=== PATIENT | female | born 1950 | race American Indian/Alaskan Native ===

== ENCOUNTER 2018-04-01 22:12 | Emergency (ER) | payer MEDICARE, BC ==
[2018-04-01 22:13] VITALS: BMI 34.2
[2018-04-01 22:42] VITALS: O2SAT 99
[2018-04-01] MEDS ORDERED: Albuterol-Ipratrop 3 mg / 0.5 (3 ml) UD IH STA (22:57)
--- NOTE | 2018-04-01 22:59 | ED PDOC ---
Arrival/HPI - General Chief Complaint: Cough, Cold, Congestion Time Seen by Provider: 04/01/18 22:48 Historian: Patient - History of Present Illness Narrative History of Present Illness (Text): 04/01/18 22:55 Ayesha Sultana is a 67 year old female, whose past medical history includes hypertension and hypothyrodism, who presents for productive cough for the past few days. Patient reports associate chills and body aches. Patient denies any shortness of breath, chest pain, fever, recent travel, or any other complaints. Patient notes her grandson was sick with similar symptoms. Past Medical History - Provider Review Nursing Documentation Reviewed: Yes - Infectious Disease Hx of Infectious Diseases: None - Cardiac Hx Hypertension: Yes Hx Pacemaker: No - Neurological Hx Paralysis: No - Endocrine/Metabolic Hx Hypothyroidism: Yes - Hematological/Oncological Hx Blood Transfusions: No Hx Blood Transfusion Reaction: No - Musculoskeletal/Rheumatological Hx Musculoskeletal Disorders: Yes - Genitourinary/Gynecological Other/Comment: Bladder issues - Psychiatric Hx Emotional Abuse: No Hx Physical Abuse: No Hx Substance Use: No - Surgical History Hx Hysterectomy: Yes Hx Mastectomy: Yes Hx Orthopedic Surgery: Yes (left knee sx x3) - Anesthesia Hx Anesthesia Reactions: Yes (nausea and vomiting) Hx Malignant Hyperthermia: No - Suicidal Assessment Feels Threatened In Home Enviroment: No Family/Social History - Physician Review Nursing Documentation Reviewed: Yes Family/Social History: Unknown Family HX Smoking Status: Never Smoked Hx Alcohol Use: Yes (SOCIALLY/ON OCCASION) Frequency of alcohol use: Socially Hx Substance Use: No Allergies/Home Meds Allergies/Adverse Reactions: Allergies Penicillins Allergy (Intermediate, Verified 04/01/18 22:39) RASH Sulfa (Sulfonamide Antibiotics) Allergy (Intermediate, Verified 04/01/18 22:39) ITCHING Home Medications: Home Meds Medication Instructions Recorded Confirmed Atorvastatin Calcium [Lipitor] 10 mg PO DAILY 02/26/12 04/01/18 Levothyroxine [Synthroid] 125 mcg PO QAM 02/26/12 04/01/18 Tolterodine [Detrol LA] 4 mg PO DAILY 03/16/16 04/01/18 amLODIPine [Norvasc] 10 mg PO QAM 03/16/16 04/01/18 Review of Systems - Physician Review All systems were reviewed & negative as marked: Yes - Review of Systems Constitutional: Other (+chills, +body aches). absent: Fevers Respiratory: Cough, Sputum. absent: SOB Cardiovascular: absent: Chest Pain Physical Exam Vital Signs Temp Pulse Resp BP Pulse Ox 04/01/18 22:34 99.3 F 90 20 164/111 H 99 Temperature: Afebrile Blood Pressure: Hypertensive Pulse: Regular Respiratory Rate: Normal Appearance: Positive for: Well-Appearing, Non-Toxic, Comfortable Pain Distress: None Mental Status: Positive for: Alert and Oriented X 3 - Systems Exam Head: Present: Atraumatic, Normocephalic Pupils: Present: PERRL Extroacular Muscles: Present: EOMI Conjunctiva: Present: Normal Mouth: Present: Moist Mucous Membranes Neck: Present: Normal Range of Motion Respiratory/Chest: Present: Wheezes (Very faint expiratory wheeze), Decreased Breath Sounds (Decreased breath sound bilaterally). No: Respiratory Distress, Accessory Muscle Use Cardiovascular: Present: Regular Rate and Rhythm, Normal S1, S2. No: Murmurs Abdomen: No: Tenderness, Distention, Peritoneal Signs Back: Present: Normal Inspection Upper Extremity: Present: Normal Inspection. No: Cyanosis, Edema Lower Extremity: Present: Normal Inspection. No: Edema Neurological: Present: GCS=15, CN II-XII Intact, Speech Normal Skin: Present: Warm, Dry, Normal Color. No: Rashes Psychiatric: Present: Alert, Oriented x 3, Normal Insight, Normal Concentration Medical Decision Making ED Course and Treatment: 04/01/18 22:55 Impression: 67 year old female complaining of productive cough, chills, and body aches. Plan: -- Chest X-ray -- Duoneb -- Reassess and disposition Progress Notes: CXR : NAD, (+) surgical clips noted to the R upper chest, as read by PA XR results d/w the patient. On further questioning, the patient states that she had R breast reconstruction surgery in the past. On reevaluation, patient reports improvement of symptoms, denies any SOB or CP. On exam, patient remains awake alert and oriented 3 in no acute distress. Neck is supple, lungs are clear to auscultation, cardiac regular rate and rhythm, repeat neuro exam shows no focal findings. VS P 80 BP 144/73. Advised to follow up with primary care physician in 1-2 days without fail. Advised to take medication as prescribed. Return to the emergency room at any time for any new or worsening symptoms. Patient states she fully agrees with and understands discharge instructions. States that she agrees with the plan and disposition. Verbalized and repeated discharge instructions and plan. I have given the patient opportunity to ask any additional questions. - RAD Interpretation Radiology Orders: 04/01/18 22:57 CHEST TWO VIEWS (PA/LAT) [RAD] Stat - Medication Orders Current Medication Orders: Albuterol/Ipratropium (Duoneb 3 Mg/0.5 Mg (3 Ml) Ud) 3 ml IH STAT STA Stop: 04/01/18 22:58 - PA / TABLET COATER / Resident Statement MD/DO has reviewed & agrees with the documentation as recorded. - Scribe Statement The provider has reviewed the documentation as recorded by the Scribe Karla Diaz Provider Scribe Attestation: All medical record entries made by the Scribe were at my direction and personally dictated by me. I have reviewed the chart and agree that the record accurately reflects my personal performance of the history, physical exam, medical decision making, and the department course for this patient. I have also personally directed, reviewed, and agree with the discharge instructions and disposition. Disposition/Present on Arrival - Present on Arrival Any Indicators Present on Arrival: No History of DVT/PE: No History of Uncontrolled Diabetes: No Urinary Catheter: No History of Decub. Ulcer: No History Surgical Site Infection Following: None - Disposition Have Diagnosis and Disposition been Completed?: Yes Diagnosis: Acute bronchitis Disposition: HOME/ ROUTINE Disposition Time: 00:00 Patient Plan: Discharge Condition: STABLE Discharge Instructions (ExitCare): Acute Bronchitis Additional Instructions: Thank you for letting us take care of you today. You were treated for acute bronchitis. The emergency medical care you received today was directed at your acute symptoms. If you were prescribed any medication, please fill it and take as directed. It may take several days for your symptoms to resolve. Return to the Emergency Department if your symptoms worsen, do not improve, or if you have any other problems. Please contact your doctor in 2 days for re-evaluation and follow up. Bring any paperwork you were given at discharge with you along with any medications you are taking to your follow up visit. Our treatment cannot replace ongoing medical care by a primary care provider (PCP) outside of the emergency department. Thank you for allowing the [facility] team to be part of your care today. If you had an X-Ray : A Radiologist will review the ED reading if any change in treatment is needed we will contact you. Prescriptions: Albuterol 0.083% [Albuterol Sulfate 3 Ml] 3 ml IH Q4 #100 neb Azithromycin [Z-Jose] 250 mg PO DAILY #6 tab Guaifenesin [Adult Tussin Chest Congestion] 200 mg PO Q6H PRN #200 ml PRN Reason: Cough Nebulizer [Aeroeclipse II] 1 each MC DAILY #1 each Referrals: Michael Hudson MD [Primary Care Provider] - Follow up with primary Forms: Cherry (Greek), WORK NOTE
[2018-04-02 00:20] VITALS: BP 144/73; PULSE 80; RESP 18; TEMP 99.2
--- NOTE | 2018-04-02 09:23 | RAD ---
Date of service: 04/01/2018 HISTORY: cough COMPARISON: 02/24/2017 TECHNIQUE: Chest PA and lateral FINDINGS: LUNGS: No active pulmonary disease. PLEURA: No significant pleural effusion identified. No pneumothorax apparent. CARDIOVASCULAR: Normal. OSSEOUS STRUCTURES: No significant abnormalities. VISUALIZED UPPER ABDOMEN: Normal. OTHER FINDINGS: Surgical clips in right axillary region IMPRESSION: No active disease.
== END 2018-04-02 00:19 | disposition home or self-care (01) ==
LOC: ED 22:12
DX: J20.9 Acute bronchitis, unspecified (principal); I10 Essential (primary) hypertension; E03.9 Hypothyroidism, unspecified

== ENCOUNTER 2018-06-25 13:10 | Outpatient (CLI) | payer MEDICARE, BC | END 2018-06-25 13:11 | disposition home or self-care (01) | LOC: RAD 13:10 ==